=== PATIENT | male | born 1995 ===

== ENCOUNTER 2021-08-06 12:30 | Outpatient (CLI) | payer OTHER ==
[2021-08-11] MEDS ORDERED: CIALIS5 MG PO (12:32)
[2021-08-11] MEDS ORDERED: EPIDIOLEX100 MG/1 M PO (12:33)
[2021-08-11] MEDS ORDERED: ZOLPIDEM TARTRA10 MG PO (12:33)
== END 2021-08-06 12:43 | disposition home or self-care (01) ==
LOC: RAD 12:30
PROVIDERS: ATTEND Surgery
DX: R07.89 Other chest pain (principal); I86.1 Scrotal varices

== ENCOUNTER 2021-08-12 11:30 | Day surgery (SDC) | payer OTHER ==
[~2021-08-12 11:30] MED LIST: CIALIS5 MG PO; EPIDIOLEX100 MG/1 M PO; ZOLPIDEM TARTRA10 MG PO
[2021-08-12] MEDS ORDERED: ULTRAM50 MG PO (15:45)
== END 2021-08-12 21:10 | disposition home or self-care (01) ==
LOC: CIR.AMB 11:30
PROVIDERS: ATTEND Surgery
DX: I86.1 Scrotal varices (principal); Z20.822 Contact with and (suspected) exposure to COVID-19